=== PATIENT | male | born 2000 | race Two or more races ===

== ENCOUNTER 2023-01-20 23:11 | Emergency (ER) | payer OTHER ==
[~2023-01-20] VITALS: Ht 185.4 cm; Wt 72.6 kg
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
[2023-01-21] MEDS ORDERED: NAPROXEN 250 MG TABLET PO ONE (01:00)
[2023-01-21] MEDS ORDERED: CYCLOBENZAPRINE 10 MG TABLET PO ONE (01:00)
[2023-01-21] MEDS ORDERED: CYCLOBENZAPRINE 10 MG TABLET ONE (01:16)
[2023-01-21] MEDS ORDERED: NAPROXEN 250 MG TABLET ONE (01:16)
--- NOTE | 2023-01-21 01:27 | NUR ---
XR AT BEDSIDE
[2023-01-21] MEDS ORDERED: CYCL10TA9 PO (03:23)
[2023-01-21 03:28] VITALS: BP 132/79
--- NOTE | 2023-01-21 03:28 | NUR ---
PT OK TO DISCHARGE PER DR GUZMAN. Patient discharged to home in stable condition. Written and verbal after care instructions given. Patient verbalizes understanding of instruction.Patient is awake and alert to self, day, and place. PT ambulatory with a steady gait.
== END 2023-01-21 03:30 | disposition home or self-care (01) ==
LOC: ER 23:15
DX: M54.50 Low back pain, unspecified (principal); V89.2XXA Person injured in unspecified motor-vehicle accident, traffic, initial encounter; Y93.89 Activity, other specified; Y92.89 Other specified places as the place of occurrence of the external cause; Y99.8 Other external cause status
CPT/HCPCS: 73502